=== PATIENT | female | born 1960 | race African-American/Black ===

== ENCOUNTER 2016-09-28 23:50 | Inpatient (IN) | payer MEDICARE, OTHER ==
--- NOTE | ~2016-09-28 | HP ---
History And Physical [facility] [address] [place]. [address] NAME: ORAL ADAN : 60 STATUS : ADM Axel PAT#: [id number] AGE: 56 ADM/REG DATE : 09/29/16 MR#: [id number] REPORT SERV DATE: 09/29/16 DICTATED BY: DATE: REPORT STATUS : Draft TRANSCRIBED BY: MODL DATE: 09/29/16 DATE OF ADMISSION: 09/29/2016 CHIEF COMPLAINT: Knee pain. Inability to ambulate. She also had multiple other complaints of dizziness, jerking. HISTORY OF PRESENT ILLNESS: Ms. Adan is a 56-year-old black female, dialyzes Tuesday, Tuesday, and Tuesday at [facility], who was at [facility] yesterday. I am unsure of whether she got dialysis there or not. She has some pulmonary edema, was sent home from the ER, presented over to [facility] with complaints of right knee pain and inability to ambulate. She denied any fevers, chills, and states that this has been ongoing for approximately two weeks and complained of swelling, tenderness and given this, we admitted her for further evaluation and apparently by her labs, she did not receive dialysis at [facility]. BUN was 93 with creatinine of 14 and potassium of 6.4, and given all this, she has been admitted for further evaluation of this knee pain and inability to ambulate. PAST MEDICAL HISTORY: End-stage renal disease, dialyzes at [facility] on Tuesday, Tuesday, and Tuesday; COPD with oxygen dependence; hypertension; diabetes; chronic pain; left eye blindness; irritable bowel syndrome; parathyroidectomy; neuropathy; seizures; gastroparesis; retinopathy; right toe amputation; H. pylori; and lumbar diskitis last summer. FAMILY MEDICAL HISTORY: No end-stage renal disease. SOCIAL HISTORY: Lives alone. No tobacco or alcohol use. ALLERGIES: SULFA, BENAZEPRIL, PPIS, OXYCODONE, DARVOCET, ADHESIVE TAPE, AND TORADOL. MEDICATIONS AT HOME: Amlodipine; atenolol; calcium; furosemide; Neurontin; hydrocodone; insulin; Lantus; Keppra; and eyedrops. She does seem to tolerate Protonix although she has an allergy to multiple other PPIs. Crestor and Renvela. REVIEW OF SYSTEMS: 12-point review of systems was obtained and negative with the exception of that in HPI. PHYSICAL EXAMINATION: VITAL SIGNS: Temperature 97.5, blood pressure is 159/63, pulse 78, respiratory rate 16, and O2 saturation is 98%. GENERAL: This is a chronically ill-appearing black female. She is awake, alert, oriented, sitting up, eating, no acute distress. Answers questions appropriately. HEENT: Normocephalic, atraumatic. Conjunctivae clear. Sclerae anicteric. Pupils are equal and round. Oral mucosa is moist. NECK: Supple. Carotids are brisk. Neck veins flat. No lymphadenopathy. LUNGS: Respirations are even and unlabored. Breath sounds clear to auscultation. HEART: Rate is regular. No murmur, rub, or gallop. ABDOMEN: Soft and nontender. Bowel sounds active. No masses. No hepatosplenomegaly. No bruits. No CVA tenderness. History And Physical [address] [address] NAME: ORAL ADAN : 60 STATUS : ADM Axel PAT#: [id number] AGE: 56 ADM/REG DATE : 09/29/16 MR#: [id number] REPORT SERV DATE: 09/29/16 DICTATED BY: DATE: REPORT STATUS : Draft TRANSCRIBED BY: MODZachery DATE: 09/29/16 BACK: Within normal limits. EXTREMITIES: No lower extremity edema to her right knee, tender, warmth. I do not appreciate any great amount of redness and no unusual rashes or skin lesions. NEUROLOGIC: No focal deficits. Mood and affect pleasant and appropriate. PERTINENT LABS AND X-RAYS: Chest x-ray was negative. WBC is 5.3, H and H 11 AND 33, and platelets 198,000. Sodium 135, potassium 6.4, chloride 97, CO2 of 22, BUN of 93, creatinine of 14, calcium of 7.2, and albumin of 3.6. LFTs are unremarkable. IMPRESSION: 1. Right knee pain and inability to walk. 2. End-stage renal disease. 3. Noncompliance with dialysis. 4. Hyperkalemia. 5. History of lumbar spine diskitis. 6. Chronic obstructive pulmonary disease, chronically O2 dependent. 7. Diabetes. 8. Hypertension. 9. Chronic pain. PLAN: Admit. Ask Ortho to see and aspirate knee if there is any fluid there to do so. Question if this is gout versus septic joint and in the setting of no fever and no white blood cell count. We will hold off on any antibiotics pending possible aspiration and dialysis today and further orders and recommendations pending clinical course. STEPHEN/MODL ANTWON Cole / [id number] CC: MD LUIZ Hinojosa
--- NOTE | ~2016-09-28 | CN ---
Consultation Report [facility] [address] [place]. [address] NAME: ORAL ADAN : 60 STATUS : ADM Axel PAT#: [id number] AGE: 56 ADM/REG DATE : 09/29/16 MR#: [id number] REPORT SERV DATE: 09/29/16 DICTATED BY: ERNIE NOLAND III DATE: 09/29/16 REPORT STATUS : Draft TRANSCRIBED BY: MODL DATE: 09/29/16 CONSULTATION DATE OF CONSULTATION: 09/29/2016 DEPARTMENT OF [employer]URAL [employer] OFFICER: Ernie Noland M.D. CHIEF COMPLAINT: Right knee pain. HISTORY: The patient is a 56-year-old black female who is admitted to the hospital service for hypokalemia and increased calcium level. She is on renal dialysis, but evidently has not been very compliant. She is now complaining of some right knee pain for the past couple of days with no history of injury or trauma. Orthopedic consultation is obtained for evaluation of her right knee pain and rule out possible septic knee. Her white count is normal. She has been afebrile. ORTHOPEDIC EXAMINATION: Reveals comfortable passive range of motion 0 to 130. No effusion. No erythema. No warmth. Some tenderness to the patellofemoral joint. 1+ varus and valgus stress. Negative Thompson's. Negative pivot shift. Negative posterior drawer. No meniscal signs. DIAGNOSTIC DATA: X-rays none available for review. PLAN: This is not a septic knee. She does not need an aspiration. In fact, there is nothing to aspirate at this time. I think the most likely cause of her knee pain is patellofemoral pain. She may respond to a cortisone shot or some range of motion. Ice and Toradol. I appreciate this consultation. TB/ÁNGELL Ernie Noland III, M.D. / [id number] CC: MD JADA Hinojosa ANGELA C
[2016-09-28 23:14] LABS: BASOPHILS 0.4 %; BASOPHILS ABSOLUTE 0.02 10/3/uL (0.0-0.16); EOSINOPHILS 5.7 %; IMMATURE GRANULOCYTES 0.2 %; IMMATURE GRANULOCYTES ABSOLUTE 0.01 10/3/uL (0.0-0.11); LYMPHOCYTES 31.9 %; LYMPHOCYTES ABSOLUTE 1.69 10/3/uL (0.67-4.30); MEAN CORPUS HGB CONC 32.4 g/dL (32.0-36.0); MEAN CORPUSCULAR HEMOGLOB 31.6 pg (26.0-34.0); MEAN CORPUSCULAR VOLUME 97.4 fL (80-100); MEAN PLATELET VOLUME 12.3 fL (9.2-13.0); MONOCYTES 6.8 %; MONOCYTES ABSOLUTE 0.36 10/3/uL (0.21-1.20); NEUTROPHILS ABSOLUTE 2.91 10/3/uL (2.02-8.40); PLATELET COUNT 198 10/3/uL (150-400); RBC DISTRIBUTION WIDTH 16.4 % (12.0-16.0); RED CELL COUNT 3.48 10/6/uL (4.0-5.6); WHITE BLOOD CELLS 5.3 10/3/uL (4.5-10.5)
[2016-09-28 23:16] LABS: ER CBC TAT 0 Hrs 04 MinsNP; HEMATOCRIT 33.9 % (36.0-48.0); MANUAL DIFF NO %
[~2016-09-28 23:50] MED LIST: *UNABLE1; *UNABLE3; 8 HOUR650 MG PO; ACCUNE1 INH; ACCUNEB INH; ACET500CAP PO; ACIDOPHILUS PO; ADVAIR100 INH; ADVAIR250 INH; ALBUTEROL; ALLEGRA PO; ANALPRAM-HC1 CRE RE; APRES10B PO; APRES25 PO; APRES50 PO; ARANESP40 IV; ASA5GR PO; ASAB PO; ASMANEX INH; ASMANEX100 INH; ATARAX50B PO; ATEN100 PO; ATEN50 PO; AUG500 PO; AUG875 PO; BEN25 PO; BENADRYL 50 MG50 MG PO; BENADRYL PO; BENTYL10 PO; CALTRA600D PO; CALTRAT600 PO; CALTRATE + D PO; CARDCD240 PO; CAT1 PO; CELEXA PO; CELEXA10 PO; CELEXA20 PO; CENTRUM PO; CENTRUM TAB1 TAB PO; CIP5 PO; CRESTOR PO; CRESTOR10 PO; CRESTOR20 MG PO; CRESTOR5 MG PO; D.O.S.100 MG PO; DEPAKOT500 PO; DEPAKOTEER PO; DIL1INJ IM; DIL2TAB PO; DILAUDID PO; DILTIAZEM HCL PO; DIOV160 PO; DSS PO; DULERA 100 MCG/13 GM INH; EPOGEN; FERRLECIT IV; FLEX PO; FLEXERIL PO; FLONASE NAS; GABAPENTIN PO; GARAOINT15 TOP; GENTAK0.3 % OPH; HALF81 PO; HEPARIN INJ5000 U/ML SC; HYDRALAZINE PO; HYDROCODONE PO; HYDROXYZINE PO; IMOD PO; IMODIUM ADV1 CHW PO; INHALER PO; INSNOV7030 SC; INSNOVR SC; IODOSORB TOP; IRON325 MG PO; KAYEXALATE PO; KAYEXUD PO; KEPPRA1000 MG PO; KEPPRA500 PO; KEPPRA750 MG PO; L40 PO; L80 PO; LANTUS; LANTUS SC; LANTUSCART SC; LASIX; LASIX PO; LEVAQ250 PO; LEVAQUIN5T PO; LEVEMIR SC; LIPITOR20 PO; LOM PO; LOP100 PO; LOP25 PO; LORT7 PO; LORTAB10 PO; LOTE40 PO; Lactobacillus PO; METAMUCIL CAN7 OZ PO; MIGRANE MED PO; MIRALAXPKT PO; NAPROXEN PO; NASONEX NAS; NEORAL; NEORAL100 MG/ML OR; NEPHRO PO; NEUR100 PO; NITROQUICK0.4 MG SL; NITROSTAT0.4 MG SL; NORCO PO; NORCO1 TA1 PO; NORCO1 TAB PO; NORV10 PO; NORV5 PO; NORVASC PO; NOVOLIN; NOVOLOG SC; NOVOPEN SC; NXL9 PO; OPANA ER40 MG PO; OTC IRON PO; PARAFON FORT PO; PEP20 PO; PHENERGAN PO; PHOSLO PO; PR25 PO; PRILO PO; PRIN10 PO; PRIN20 PO; PRO STAT; PROAIR HFA INH; PROTONIX PO; PROVENTIL INH; PROVENTSOL INH; PROVHFA INH; REG5 PO; REGLAN 10 MG OR; RELPAX PO; RELPAX40 MG PO; RENA-VITE PO; RENAGEL800 PO; RENAL CAPS PO; RENAL SFTGLS1 MG OR; RENAL SFTGLS1 MG PO; RENATAB1 OR; RENVELA800 MG PO; ROCALTROL0.5 MCG OR; ROCALTROL0.5 MCG PO; SENSIPAR30 M1 OR; SENSIPAR30 MG OR; SEVE800T PO; SILVASORB TOP; STOOL SOFTEN100 MG PO; STOOL SOFTENER OTC PO; T PO; TESSALON PERLE; TUMSROLL PO; TYLENOL 8 HR650 MG PO; TYLENOL PO; VANCO1P; VANCO500 IV; VANCOMYCIN IV; VENTOLIN HFA INH; VIMPAT; VIMPAT50 MG PO; VIST50 PO; VITAPAK PO; XYZAL5 MG PO; ZANTAC150 MG PO; ZESTRIL40 MG PO; ZOFRAN ODT4 MG PO; ZOFRAN8 PO; ZYRTEC ALLGY10 MG PO; [UNRECOGNIZED DRUG - CODE] OPH; [UNRECOGNIZED DRUG - OTHER] INH; [UNRECOGNIZED DRUG - OTHER] INH; [UNRECOGNIZED DRUG - OTHER] OR; [UNRECOGNIZED DRUG - OTHER] PO
[2016-09-28 23:57] LABS: A/G RATIO 0.7 (0.7-1.9); ALBUMIN 3.6 G/DL (3.5-5.0); CALCIUM, SERUM 7.2 MG/DL (8.5-10.4); CHLORIDE, SERUM 97 MMOL/L (96-112); GLOBULIN 5.1 G/DL (2.5-4.1); SGOT(AST) 12 U/L (5-40); SGPT(ALT) 12 U/L (5-65); SODIUM, SERUM 135 MMOL/L (135-148); TOTAL BILIRUBIN 0.4 MG/DL (0-1.2); TOTAL PROTEIN 8.7 G/DL (6.0-8.5)
[2016-09-29] LABS: ALKALINE PHOSPHATASE 124 U/L (45-117); BUN (BLOOD UREA NITROGEN) 93 MG/DL (6-23); CO2 (CARBON DIOXIDE) 22 MMOL/L (24-34); GFR AFRICAN AMERICAN 3 ML/MIN (>=60); GFR NON AFRICAN AMERICAN 3 ML/MIN (>=60); GLUCOSE, SERUM 237 MG/DL (60-99); POTASSIUM, SERUM 6.4 MMOL/L (3.5-5.3)
[2016-09-29] MEDS ORDERED: KEPPRA1000 MG PO (03:22)
[2016-09-29] MEDS ORDERED: KEPPRA500 PO (03:22)
[2016-09-29] MEDS ORDERED: SEVE800T PO (03:23)
[2016-09-29] MEDS ORDERED: NOVOPEN SC (03:23)
[2016-09-29] MEDS ORDERED: PHOSLO PO (03:24)
[2016-09-29] MEDS ORDERED: NORCO1 TA1 PO (03:25)
[2016-09-29] MEDS ORDERED: NORV10 PO (03:26)
[2016-09-29] MEDS ORDERED: L80 PO (03:26)
[2016-09-29] MEDS ORDERED: ATEN50 PO (03:26)
[2016-09-29] MEDS ORDERED: LANTUSCART SC ×2 (03:26→03:27)
[2016-09-29] MEDS ORDERED: PATADAY OPH (03:27)
[2016-09-29] MEDS ORDERED: PROTONIX PO (03:28)
[2016-09-29] MEDS ORDERED: NEUR300 PO (03:28)
[2016-09-29] MEDS ORDERED: NORCO1 TA2 PO (03:28)
[2016-09-29] MEDS ORDERED: CRESTOR20 MG PO (03:29)
[2016-09-30 05:38] LABS: BASOPHILS 0.7 %; BASOPHILS ABSOLUTE 0.03 10/3/uL (0.0-0.16); EOSINOPHILS 5.6 %; EOSINOPHILS ABSOLUTE 0.25 10/3/uL (0.0-0.53); HEMATOCRIT 31.5 % (36.0-48.0); HEMOGLOBIN 10.2 g/dL (12.0-16.0); LYMPHOCYTES 41.1 %; LYMPHOCYTES ABSOLUTE 1.84 10/3/uL (0.67-4.30); MEAN CORPUS HGB CONC 32.4 g/dL (32.0-36.0); MEAN CORPUSCULAR HEMOGLOB 31.8 pg (26.0-34.0); MEAN CORPUSCULAR VOLUME 98.1 fL (80-100); MEAN PLATELET VOLUME 12.1 fL (9.2-13.0); MONOCYTES 6.9 %; MONOCYTES ABSOLUTE 0.31 10/3/uL (0.21-1.20); NEUTROPHILS 45.7 %; NEUTROPHILS ABSOLUTE 2.05 10/3/uL (2.02-8.40); PLATELET COUNT 186 10/3/uL (150-400); RBC DISTRIBUTION WIDTH 15.8 % (12.0-16.0); RED CELL COUNT 3.21 10/6/uL (4.0-5.6); WHITE BLOOD CELLS 4.5 10/3/uL (4.5-10.5)
[2016-09-30 05:42] LABS: MANUAL DIFF NO %
[2016-09-30 06:55] LABS: CALCIUM, SERUM 7.1 MG/DL (8.5-10.4); CHLORIDE, SERUM 98 MMOL/L (96-112); CO2 (CARBON DIOXIDE) 25 MMOL/L (24-34); GFR AFRICAN AMERICAN 4 ML/MIN (>=60); GFR NON AFRICAN AMERICAN 4 ML/MIN (>=60); GLUCOSE, SERUM 252 MG/DL (60-99); PHOSPHORUS, SERUM 6.1 MG/DL (2.5-4.5); SODIUM, SERUM 136 MMOL/L (135-148)
[2016-09-30 06:56] LABS: BUN (BLOOD UREA NITROGEN) 59 MG/DL (6-23); POTASSIUM, SERUM 4.8 MMOL/L (3.5-5.3)
[2016-10-01 19:00] LABS: BASOPHILS 0.4 %; BASOPHILS ABSOLUTE 0.02 10/3/uL (0.0-0.16); EOSINOPHILS 3.8 %; HEMATOCRIT 31.7 % (36.0-48.0); HEMOGLOBIN 10.2 g/dL (12.0-16.0); IMMATURE GRANULOCYTES 0.2 %; IMMATURE GRANULOCYTES ABSOLUTE 0.01 10/3/uL (0.0-0.11); LYMPHOCYTES 34.2 %; LYMPHOCYTES ABSOLUTE 1.82 10/3/uL (0.67-4.30); MEAN CORPUS HGB CONC 32.2 g/dL (32.0-36.0); MEAN CORPUSCULAR HEMOGLOB 31.1 pg (26.0-34.0); MEAN CORPUSCULAR VOLUME 96.6 fL (80-100); MEAN PLATELET VOLUME 11.6 fL (9.2-13.0); MONOCYTES ABSOLUTE 0.32 10/3/uL (0.21-1.20); NEUTROPHILS 55.4 %; NEUTROPHILS ABSOLUTE 2.95 10/3/uL (2.02-8.40); PLATELET COUNT 190 10/3/uL (150-400); RBC DISTRIBUTION WIDTH 15.7 % (12.0-16.0); RED CELL COUNT 3.28 10/6/uL (4.0-5.6); WHITE BLOOD CELLS 5.3 10/3/uL (4.5-10.5)
[2016-10-01 19:04] LABS: MANUAL DIFF NO %
[2016-10-01 19:22] LABS: ALBUMIN 3.3 G/DL (3.5-5.0); CHLORIDE, SERUM 96 MMOL/L (96-112); CO2 (CARBON DIOXIDE) 25 MMOL/L (24-34); GLUCOSE, SERUM 214 MG/DL (60-99); PHOSPHORUS, SERUM 6.5 MG/DL (2.5-4.5); SODIUM, SERUM 136 MMOL/L (135-148)
[2016-10-01 19:23] LABS: BUN (BLOOD UREA NITROGEN) 81 MG/DL (6-23); CALCIUM, SERUM 6.9 MG/DL (8.5-10.4); GFR AFRICAN AMERICAN 3 ML/MIN (>=60); GFR NON AFRICAN AMERICAN 3 ML/MIN (>=60)
[2016-10-02 08:13] LABS: BASOPHILS 0.5 %; BASOPHILS ABSOLUTE 0.03 10/3/uL (0.0-0.16); EOSINOPHILS 4.5 %; EOSINOPHILS ABSOLUTE 0.26 10/3/uL (0.0-0.53); HEMOGLOBIN 9.3 g/dL (12.0-16.0); IMMATURE GRANULOCYTES 0.2 %; IMMATURE GRANULOCYTES ABSOLUTE 0.01 10/3/uL (0.0-0.11); LYMPHOCYTES 39.2 %; LYMPHOCYTES ABSOLUTE 2.24 10/3/uL (0.67-4.30); MEAN CORPUS HGB CONC 32.1 g/dL (32.0-36.0); MEAN CORPUSCULAR VOLUME 96.7 fL (80-100); MEAN PLATELET VOLUME 11.5 fL (9.2-13.0); MONOCYTES 7.2 %; MONOCYTES ABSOLUTE 0.41 10/3/uL (0.21-1.20); NEUTROPHILS 48.4 %; NEUTROPHILS ABSOLUTE 2.77 10/3/uL (2.02-8.40); PLATELET COUNT 161 10/3/uL (150-400); RBC DISTRIBUTION WIDTH 15.4 % (12.0-16.0); WHITE BLOOD CELLS 5.7 10/3/uL (4.5-10.5)
[2016-10-02 08:14] LABS: MANUAL DIFF NO %
[2016-10-02 08:39] LABS: CHLORIDE, SERUM 97 MMOL/L (96-112); CO2 (CARBON DIOXIDE) 24 MMOL/L (24-34); GLUCOSE, SERUM 182 MG/DL (60-99); PHOSPHORUS, SERUM 6.5 MG/DL (2.5-4.5); POTASSIUM, SERUM 5.7 MMOL/L (3.5-5.3); SODIUM, SERUM 138 MMOL/L (135-148)
[2016-10-02 08:40] LABS: BUN (BLOOD UREA NITROGEN) 95 MG/DL (6-23); CALCIUM, SERUM 6.5 MG/DL (8.5-10.4); GFR AFRICAN AMERICAN 3 ML/MIN (>=60); GFR NON AFRICAN AMERICAN 3 ML/MIN (>=60)
[2017-02-23] MEDS ORDERED: COZ25 PO (20:19)
[2017-02-23] MEDS ORDERED: ASAB PO (20:20)
[2017-02-26] MEDS ORDERED: L80 PO (14:47)
[2017-03-10] MEDS ORDERED: APTIOM 200 MG PO (12:40)
[2017-03-10] MEDS ORDERED: COZ25 PO (12:56)
[2017-03-10] MEDS ORDERED: THERGRANM PO (12:58)
[2017-03-10] MEDS ORDERED: NORCO1 TA2 PO (13:07)
[2017-03-10] MEDS ORDERED: LANTUS SC (13:15)
[2017-03-10] MEDS ORDERED: ADVAIR100 INH (13:19)
[2017-03-10] MEDS ORDERED: PATADAY (13:20)
[2017-03-10] MEDS ORDERED: KEPPRA750 MG PO (13:25)
== END 2016-10-02 15:22 | DRG 640 ==
LOC: ER 23:50 → 2SO 09-29 22:17
PROVIDERS: Emergency Medicine; Nurse Practitioner
PROC: 5A1D60Z (ICD-10-PCS; principal; 2016-09-29)
DX: E87.5 Hyperkalemia (principal); N18.6 End stage renal disease; E11.22 Type 2 diabetes mellitus with diabetic chronic kidney disease; Z99.81 Dependence on supplemental oxygen; K31.84 Gastroparesis; E11.40 Type 2 diabetes mellitus with diabetic neuropathy, unspecified; I12.9 Hypertensive chronic kidney disease with stage 1 through stage 4 chronic kidney disease, or unspecified chronic kidney disease; J44.9 Chronic obstructive pulmonary disease, unspecified; H54.42 Blindness, left eye, normal vision right eye; K58.9 Irritable bowel syndrome, unspecified; E11.43 Type 2 diabetes mellitus with diabetic autonomic (poly)neuropathy; E11.319 Type 2 diabetes mellitus with unspecified diabetic retinopathy without macular edema; Z99.2 Dependence on renal dialysis; Z79.4 Long term (current) use of insulin; Z89.421 Acquired absence of other right toe(s); Z88.2 Allergy status to sulfonamides; Z88.5 Allergy status to narcotic agent; Z88.8 Allergy status to other drugs, medicaments and biological substances; Z91.15 Patient's noncompliance with renal dialysis
CPT/HCPCS: 71010; 73560-RT; 80053; 80069; 82330; 82962; 85025; 93005; 94640; 97110-GP; 97116-GP; 97162-GP; 97165-GO; 99285; A9270-GY; G0257; G8978-CK-GP; G8979-CJ-GP; G8987-CJ-GO; G8988-CI-GO; J0610; J2405

== ENCOUNTER 2016-12-28 20:54 | Inpatient (IN) | payer MEDICARE, OTHER ==
--- NOTE | ~2016-12-28 | HP ---
History And Physical [facility] [address] [place]. [address] NAME: ORAL ADAN : 60 STATUS : ADM IN [facility]#: [id number] AGE: 56 ADM/REG DATE : 12/28/16 MR#: [id number] REPORT SERV DATE: 12/29/16 DICTATED BY: NITA SWANN DATE: 12/29/16 REPORT STATUS : Draft TRANSCRIBED BY: MODL DATE: 12/29/16 DATE OF ADMISSION: 12/28/2016 INDICATION FOR HOSPITALIZATION: Volume overload, hyperkalemia, irritable bowel syndrome with diarrhea. HISTORY OF PRESENT ILLNESS: Ms. Adan is a 56-year-old female, who dialyzes Tuesday, Tuesday, Tuesday at [facility] by AVF. She missed treatment on 12/27/2016 due to diarrhea. She states that she has been seen Dr. Ruffin and her abdominal pain/cramping and diarrhea has worsened. She felt she was under better management with her prior GI physician. She requested that her GI doctor by name. She has had some left elbow pain and is scheduled for outpatient evaluation. Otherwise, she states that she was having no problems. PAST MEDICAL HISTORY: End-stage renal disease, dialyzing Tuesday, Tuesday, Tuesday at [facility]; history of noncompliance with dialysis; COPD; asthma; hypertension; superior vena cava syndrome; status post angioplasty of right internal jugular and right innominate veins; improving facial swelling; insulin-dependent diabetes mellitus; diabetic neuropathy; diabetic gastroparesis; diabetic retinopathy with blindness in left eye, requiring enucleation prosthesis; seizure disorder; chronic pain; irritable bowel syndrome; peripheral arterial disease with remote right great toe amputation; atherosclerotic cardiovascular disease; glaucoma; history of QT prolongation; peptic ulcer disease; and remote parathyroidectomy. ALLERGIES: BACTRIM, BENAZEPRIL, PERCOCET, DARVOCET, PRILOSEC, NEXIUM, ADHESIVE TAPE, TORADOL, LANSOPRAZOLE, TRAMADOL, NEXIUM. HOME MEDICATIONS: Albuterol, amlodipine, atenolol, calcium acetate, Celexa, Welchol, Lasix, Neurontin, Keppra, Pataday ophthalmic solution, Protonix, Crestor, Renvela. SOCIAL HISTORY: Smokes two cigarettes per day with prior use of tobacco products. No alcohol products or illicit drugs. FAMILY HISTORY: Positive for hypertension and diabetes. One brother with end-stage renal disease. REVIEW OF SYSTEMS: HEENT: No change in visual acuity with blindness of left eye. No epistaxis, otic infection, or pharyngitis. PULMONARY: Intermittent shortness of breath. No cough or hemoptysis. Cardiac: Has intermittent chest pressure and intermittent lower extremity edema. GI: No nausea, vomiting, melena, but has had abdominal cramping and diarrhea. : No gross hematuria. MUSCULOSKELETAL: Pain in lower extremities. INTEGUMENT: No rash. No skin lesions. NEUROLOGIC: No lateralizing weakness. No recent seizure event continues with peripheral History And Physical [address] [place]. [address] NAME: ORAL ADAN : 60 STATUS : ADM IN [facility]#: [id number] AGE: 56 ADM/REG DATE : 12/28/16 MR#: [id number] REPORT SERV DATE: 12/29/16 DICTATED BY: NITA SWANN DATE: 12/29/16 REPORT STATUS : Draft TRANSCRIBED BY: JOHN DATE: 12/29/16 neuropathy. Remainder of 12-point review of systems is negative. PHYSICAL EXAMINATION: GENERAL: Chronically debilitated female, alert, cooperative. VITAL SIGNS: Blood pressure 177/82, temperature 98.6, respiratory rate 18, pulse 63. HEENT: Eyes: No scleral icterus. Right pupil reactive. Nares patent. No lesions. Throat: No injection. Mucous membranes moist. NECK: No thyromegaly, masses, bruits. CHEST/LUNGS: Late crackles laterally. No wheezing. No dullness. CARDIAC: Regular rate and rhythm. Questionable 1/6 systolic ejection murmur. No gallop or rub. ABDOMEN: Supple. No guarding. Bowel sounds present. No hepatosplenomegaly. BREASTS: Exam not performed. PELVIC: Exam not performed. RECTAL: Exam not performed. EXTREMITIES: No edema. No calf tenderness. Right great toe amputation noted. MUSCULOSKELETAL: No deformity, except right toe amputation. No joint effusions. There is some tenderness in the right elbow. NEUROLOGIC: Cranial nerves intact. No lateralizing weakness. IMPRESSION: 1. Hyperkalemia, volume overload due to noncompliance with dialysis. 2. Irritable bowel syndrome with abdominal cramping and diarrhea. Precipitating noncompliance with dialysis. 3. End-stage renal disease, dialyzing Tuesday, Tuesday, Tuesday at [facility] by AV fistula. 4. Type 2 diabetes mellitus. 5. Hypertension. 6. Diabetic neuropathy. 7. Chronic obstructive pulmonary disease with asthma, on home oxygen. 8. Rheumatoid arthritis. 9. Gastroesophageal reflux disease. PLAN: 1. GI consult. 2. Urgent dialysis. 3. Resume home medications. CG/JOHN Nita Swann M.D. History And Physical [address] [address] NAME: ORAL ADAN : 60 STATUS : ADM IN [facility]#: [id number] AGE: 56 ADM/REG DATE : 12/28/16 MR#: [id number] REPORT SERV DATE: 12/29/16 DICTATED BY: NITA SWANN DATE: 12/29/16 REPORT STATUS : Draft TRANSCRIBED BY: JOHN DATE: 12/29/16 / [id number] CC: Rj Long ANGELA C
--- NOTE | ~2016-12-28 | DS ---
Discharge Summary [facility] [address] [place]. [address] NAME: ORAL ADAN : 60 STATUS : DIS IN PAT#: [id number] AGE: 56 ADM/REG DATE : 12/28/16 MR#: [id number] REPORT SERV DATE: 01/01/17 DICTATED BY: NITA SWANN DATE: 12/31/16 REPORT STATUS : Draft TRANSCRIBED BY: MODL DATE: 12/31/16 ADMISSION DATE: 12/28/2016 DISCHARGE DATE: 12/31/2016 INDICATION FOR HOSPITALIZATION: Volume overload, hyperkalemia, irritable bowel syndrome with diarrhea. DISCHARGE DIAGNOSES: 1. Hyperkalemia and volume overload due to noncompliance with dialysis. 2. Irritable bowel syndrome with abdominal cramping and diarrhea, precipitating, noncompliance with dialysis. 3. End-stage renal disease, dialyzing Tuesday, Tuesday, Tuesday at [facility] by arteriovenous fistula. 4. Type 2 diabetes mellitus. 5. Hypertension. 6. Diabetic neuropathy. 7. Chronic obstructive pulmonary disease with asthma on home O2. 8. Rheumatoid arthritis. 9. Gastroesophageal reflux disease. 10.History of superior vena cava syndrome, status post angioplasty of right internal jugular and right innominate veins with improving facial swelling. 11.Diabetic gastroparesis. 12.Diabetic retinopathy with blindness, left eye. 13.Seizure disorder. 14.Chronic pain. 15.Peripheral arterial disease with remote right great toe amputation. 16.Atherosclerotic cardiovascular disease. 17.Glaucoma. 18.History of QT prolongation. 19.History of peptic ulcer disease. 20.Remote parathyroidectomy. HOSPITAL COURSE: Ms. Adan is a 56-year-old female who is dialyzed Tuesday, Tuesday, Tuesday at [facility] by left AVF. She missed treatment on 12/27/2016 due to diarrhea and abdominal cramping. She states that her GI symptoms have worsened since she was last seen by GI and she wanted to transition to a different wine and spirits clerk and requested Dr. Singleton by name. She otherwise had some left elbow pain which is scheduled for outpatient evaluation. The patient was seen by GI and felt that she did not need any endoscopic procedure. Her diarrhea was felt to be acute on chronic and medications were adjusted. Bentyl 20 mg p.o. a.c. and Florastor one b.i.d. was initiated for diarrhea and Zofran was initiated for nausea. The GI symptoms quickly abated. She required no further intervention. She was dialyzed emergently for volume overload and hyperkalemia. She was noted to have a potassium of 4.5 on 12/30/2016 and was dialyzed on 12/31/2016. She felt stable for release Discharge Summary [address] [place]. [address] NAME: ORAL ADAN : 60 STATUS : DIS IN PAT#: [id number] AGE: 56 ADM/REG DATE : 12/28/16 MR#: [id number] REPORT SERV DATE: 01/01/17 DICTATED BY: NITA SWANN DATE: 12/31/16 REPORT STATUS : Draft TRANSCRIBED BY: JOHN DATE: 12/31/16 and wanted to go home. DISCHARGE MEDICATIONS: Amlodipine 10 mg p.o. twice daily; Tenormin 50 mg daily; PhosLo 667 mg three p.o. with meals; calcium acetate/PhosLo 667 mg two p.o. with snacks; Celexa 20 mg daily; Welchol 625 mg daily; Lasix 80 mg p.o. Tuesday, Tuesday, Tuesday, ; Neurontin 100 mg q.a.m.; Keppra 1000 mg q.a.m. and 1500 mg at bedtime; Lantus 30 units subcutaneous every morning and 20 units subcutaneous with lunch and supper; NovoLog FlexPen sliding scale per home regimen; Pataday ophthalmic drops, one drop both eyes daily; Protonix 40 mg p.o. daily; Zofran 4 mg p.o. twice daily; Renvela 1600 mg with meals; albuterol inhaler two puffs every 4 hours as needed; Florastor one capsule twice daily; Crestor 20 mg p.o. daily; dicyclomine 20 mg p.o. a.c. meals; and Lortab 5/325 one p.o. b.i.d. x2 weeks, dispense 28, no refill. FOLLOWUP: Will be on dialysis as scheduled. Follow up with GI as requested. ACTIVITY: Activity will be resumed per home regimen. DIET: 2000-calorie ADA renal diet. DICTATED BY: Rj Long/JOHN Nita Swann M.D. / [id number] CC: Rj Long
--- NOTE | ~2016-12-28 | CN ---
Consultation Report [facility] [address] [place]. [address] NAME: ORAL ADAN : 60 STATUS : ADM IN PAT#: [id number] AGE: 56 ADM/REG DATE : 12/28/16 MR#: [id number] REPORT SERV DATE: 12/29/16 DICTATED BY: MACARIO WHITMORE DATE: 12/29/16 REPORT STATUS : Draft TRANSCRIBED BY: MODL DATE: 12/29/16 CONSULTATION DATE OF CONSULTATION: REASON FOR CONSULTATION: Evaluation and management of diarrhea, irritable bowel syndrome, and abdominal pain. HISTORY OF PRESENT ILLNESS: Ms. Adan is a 56-year-old female patient who has been seen by Dr. Singleton in the past, who presents to [facility] with a chief complaint of abdominal pain and diarrhea, found to have volume overload, as well as hyperkalemia secondary to missed dialysis treatments. The patient tells me that she has had a history of irritable bowel with diarrhea being seen by another GI physician, who at this time of my rounding she could not recall his name. Treated with a "little green pill." She has been having acute onset of right-sided abdominal pain with diarrhea since Tuesday. She states over the last 24 hours, she has had bowel movements every 15 minutes with increasing right-sided abdominal pain. She missed her dialysis treatment on Tuesday secondary to abdominal pain and cramping. She came to the emergency room, was found to have elevated potassium level as well as symptoms of volume overload. She was given Kayexalate. Her potassium level on admission 6.2, presently 5.1. Secondary to her complaints of abdominal pain and diarrhea, GI consultation was requested. The patient gives a history of a recent endoscopy with her other GI physician, told she had a bacteria in her stomach, presumed H pylori, which she was given antibiotics for treatment. At present, she states that her diarrhea did increase after she was given Kayexalate, but even prior to that, she had had increased stooling. She denies any hematochezia or melena. She states that it had a very foul odor. No mucus was observed by the patient. I have discussed with the patient that we will obtain stool studies to rule out C diff as well as any other infectious cause for her diarrhea. If her pain persists, would recommend noncontrasted CT. At this point, we will hold off on any endoscopy at this time. PAST MEDICAL HISTORY: Positive for pancreatitis; colon polyps; gastritis; H pylori; end- stage renal disease, requiring dialysis treatments; medical noncompliance; COPD; asthma; hypertension; superior vena cava syndrome. She has a history of angioplasty to the right internal jugular, type 2 diabetes, diabetic neuropathy, gastroparesis, diabetic retinopathy with left eye blindness, seizure disorder, chronic pain syndrome, irritable bowel with diarrhea, peripheral arterial disease, right great toe amputation, cardiovascular disease, glaucoma, peptic ulcer disease, parathyroidectomy, left eye enucleation with prosthesis. SOCIAL HISTORY: Positive for tobacco. No alcohol or illicits. FAMILY HISTORY: Noncontributory from a GI standpoint. ALLERGIES: LISTED TO BACTRIM, BENAZEPRIL, PERCOCET, DARVOCET, PRILOSEC, NEXIUM, TRAMADOL, AND TORADOL. Consultation Report [address] [address] NAME: ORAL ADAN : 60 STATUS : ADM IN [facility]#: [id number] AGE: 56 ADM/REG DATE : 12/28/16 MR#: [id number] REPORT SERV DATE: 12/29/16 DICTATED BY: MACARIO WHITMORE DATE: 12/29/16 REPORT STATUS : Draft TRANSCRIBED BY: OJHN DATE: 12/29/16 HOME MEDICATIONS: Ventolin, Norvasc, Tenormin, PhosLo, Celexa, WelChol, Lasix, Neurontin, NovoLog, Lantus, Keppra, Protonix, Crestor, and Renvela. REVIEW OF SYSTEMS: A 10-point review of systems was obtained with pertinent positives being addressed in the history of present illness. PHYSICAL EXAMINATION: VITAL SIGNS: Temperature is 98.2, pulse 60, respirations 15, blood pressure is 154/63. NEURO: Reveals an alert female, resting in bed. GENERAL: She is cooperative. She is in no acute distress. She is awake, alert, oriented x3. HEAD, EARS, EYES, NOSE, AND THROAT: Abnormal left eye. Normocephalic, atraumatic. NECK: No JVD. No palpable nodes. Supple. LUNGS: Decreased throughout with normal respiratory effort exhibited. CARDIOVASCULAR: Regular rate and rhythm. ABDOMEN: Soft, round, and obese. Tenderness to palpation mildly to the right side on deep palpation. She has active bowel sounds in all four quadrants. Unable to assess organomegaly. EXTREMITIES: No edema. Normal distal pulses. SKIN: Warm, dry, and intact. PERTINENT LABORATORY DATA: Sodium 138, potassium 5.1, BUN 36, creatinine is 15.6. White blood cell count is 4.9, hemoglobin 11, hematocrit 33.5. Total bilirubin is 0.6, alkaline phosphatase 100, ALT 11, AST 14. Lipase 218. BNP is 654. ASSESSMENT: 1. Diarrhea, acute on chronic. 2. Obvious history with predominant diarrhea. 3. Abdominal pain, acute on chronic. 4. End-stage renal disease with dialysis dependence. 5. History of type 2 diabetes. 6. History of H. pylori, question treatment compliance. 7. Hyperkalemia with fluid volume overload secondary to dialysis noncompliance. 8. Medical noncompliance. PLAN: 1. Stool studies. 2. We will also check a stool for H. pylori. 3. Stool studies negative, pain persists, question CT scan. 4. We will begin low-dose Bentyl as well as Florastor. We will follow. Consultation Report [address] [place]. [address] NAME: ORAL ADAN : 60 STATUS : ADM IN [facility]#: [id number] AGE: 56 ADM/REG DATE : 12/28/16 MR#: [id number] REPORT SERV DATE: 12/29/16 DICTATED BY: MACARIO WHITMORE DATE: 12/29/16 REPORT STATUS : Draft TRANSCRIBED BY: JOHN DATE: 12/29/16 MENDEZ/JOHN ANTWON Reich / [id number] CC: Rj Long ANGELA C
[~2016-12-28 20:54] MED LIST changes: +NEUR300 PO; +NORCO1 TA2 PO; +PATADAY OPH
[2016-12-28 22:16] LABS: BASOPHILS 0.2 %; BASOPHILS ABSOLUTE 0.01 10/3/uL (0.0-0.16); EOSINOPHILS ABSOLUTE 0.16 10/3/uL (0.0-0.53); ER CBC TAT 0 Hrs 07 Mins; HEMOGLOBIN 11.4 g/dL (12.0-16.0); IMMATURE GRANULOCYTES 0.2 %; IMMATURE GRANULOCYTES ABSOLUTE 0.01 10/3/uL (0.0-0.11); LYMPHOCYTES 24.9 %; LYMPHOCYTES ABSOLUTE 1.34 10/3/uL (0.67-4.30); MEAN CORPUS HGB CONC 32.7 g/dL (32.0-36.0); MEAN CORPUSCULAR HEMOGLOB 31.2 pg (26.0-34.0); MEAN CORPUSCULAR VOLUME 95.6 fL (80-100); MEAN PLATELET VOLUME 11.6 fL (9.2-13.0); MONOCYTES 5.6 %; NEUTROPHILS 66.1 %; NEUTROPHILS ABSOLUTE 3.57 10/3/uL (2.02-8.40); PLATELET COUNT 162 10/3/uL (150-400); RBC DISTRIBUTION WIDTH 15.1 % (12.0-16.0); RED CELL COUNT 3.65 10/6/uL (4.0-5.6); WHITE BLOOD CELLS 5.4 10/3/uL (4.5-10.5)
[2016-12-28 22:17] LABS: HEMATOCRIT 34.9 % (36.0-48.0); MANUAL DIFF NO %
[2016-12-28 22:31] LABS: A/G RATIO 0.8 (0.7-1.9); ALBUMIN 3.6 G/DL (3.5-5.0); ALKALINE PHOSPHATASE 100 U/L (45-117); CHLORIDE, SERUM 100 MMOL/L (96-112); CO2 (CARBON DIOXIDE) 26 MMOL/L (24-34); GLOBULIN 4.4 G/DL (2.5-4.1); SGOT(AST) 14 U/L (5-40); SGPT(ALT) 11 U/L (5-65); SODIUM, SERUM 137 MMOL/L (135-148); TOTAL BILIRUBIN 0.6 MG/DL (0-1.2)
[2016-12-28 22:32] LABS: BUN (BLOOD UREA NITROGEN) 81 MG/DL (6-23); CALCIUM, SERUM 7.2 MG/DL (8.5-10.4); GFR AFRICAN AMERICAN 3 ML/MIN (>=60); GFR NON AFRICAN AMERICAN 2 ML/MIN (>=60); GLUCOSE, SERUM 157 MG/DL (60-99); POTASSIUM, SERUM 6.2 MMOL/L (3.5-5.3)
[2016-12-28] MEDS ORDERED: ATEN50 PO (23:52)
[2016-12-28] MEDS ORDERED: NORV10 PO (23:52)
[2016-12-28] MEDS ORDERED: PHOSLO PO (23:56)
[2016-12-28] MEDS ORDERED: CELEXA20 PO (23:58)
[2016-12-29] MEDS ORDERED: L40 PO (00:01)
[2016-12-29] MEDS ORDERED: WELCHOL 625 MG625 MG PO (00:02)
[2016-12-29] MEDS ORDERED: KEPPRA1000 MG PO (00:02)
[2016-12-29] MEDS ORDERED: PROVHFA INH (00:02)
[2016-12-29] MEDS ORDERED: PATADAY OPH (00:03)
[2016-12-29] MEDS ORDERED: PROTONIX PO (00:04)
[2016-12-29] MEDS ORDERED: NEUR100 PO (00:04)
[2016-12-29] MEDS ORDERED: LANTUSCART SC (00:04)
[2016-12-29] MEDS ORDERED: LANTUS SC (00:04)
[2016-12-29] MEDS ORDERED: CRESTOR20 MG PO (00:05)
[2016-12-29] MEDS ORDERED: NOVOLOG SC (00:05)
[2016-12-29] MEDS ORDERED: SEVE800T PO (00:07)
[2016-12-29 06:06] LABS: CALCIUM, SERUM 7.2 MG/DL (8.5-10.4); CHLORIDE, SERUM 101 MMOL/L (96-112); GFR AFRICAN AMERICAN 3 ML/MIN (>=60); GFR NON AFRICAN AMERICAN 2 ML/MIN (>=60); GLUCOSE, SERUM 143 MG/DL (60-99); POTASSIUM, SERUM 5.1 MMOL/L (3.5-5.3); SODIUM, SERUM 138 MMOL/L (135-148)
[2016-12-29 06:09] LABS: BUN (BLOOD UREA NITROGEN) 86 MG/DL (6-23); CO2 (CARBON DIOXIDE) 21 MMOL/L (24-34)
[2016-12-29 08:33] LABS: BASOPHILS 0.4 %; BASOPHILS ABSOLUTE 0.02 10/3/uL (0.0-0.16); EOSINOPHILS 4.3 %; EOSINOPHILS ABSOLUTE 0.21 10/3/uL (0.0-0.53); HEMATOCRIT 33.5 % (36.0-48.0); IMMATURE GRANULOCYTES 0.2 %; IMMATURE GRANULOCYTES ABSOLUTE 0.01 10/3/uL (0.0-0.11); LYMPHOCYTES 32.1 %; LYMPHOCYTES ABSOLUTE 1.57 10/3/uL (0.67-4.30); MEAN CORPUS HGB CONC 32.8 g/dL (32.0-36.0); MEAN CORPUSCULAR HEMOGLOB 30.8 pg (26.0-34.0); MEAN CORPUSCULAR VOLUME 93.8 fL (80-100); MEAN PLATELET VOLUME 12.3 fL (9.2-13.0); MONOCYTES 7.6 %; MONOCYTES ABSOLUTE 0.37 10/3/uL (0.21-1.20); NEUTROPHILS 55.4 %; NEUTROPHILS ABSOLUTE 2.71 10/3/uL (2.02-8.40); PLATELET COUNT 153 10/3/uL (150-400); RED CELL COUNT 3.57 10/6/uL (4.0-5.6); WHITE BLOOD CELLS 4.9 10/3/uL (4.5-10.5)
[2016-12-29 08:34] LABS: MANUAL DIFF NO %
[2016-12-29 09:37] LABS: ALBUMIN 3.7 G/DL (3.5-5.0)
[2016-12-29 09:40] LABS: PHOSPHORUS, SERUM 8.5 MG/DL (2.5-4.5)
[2016-12-30 07:31] LABS: BASOPHILS 0.7 %; BASOPHILS ABSOLUTE 0.03 10/3/uL (0.0-0.16); EOSINOPHILS ABSOLUTE 0.21 10/3/uL (0.0-0.53); HEMOGLOBIN 11.1 g/dL (12.0-16.0); LYMPHOCYTES ABSOLUTE 1.69 10/3/uL (0.67-4.30); MEAN CORPUS HGB CONC 31.7 g/dL (32.0-36.0); MEAN CORPUSCULAR HEMOGLOB 31.2 pg (26.0-34.0); MEAN PLATELET VOLUME 12.1 fL (9.2-13.0); MONOCYTES 8.3 %; MONOCYTES ABSOLUTE 0.35 10/3/uL (0.21-1.20); NEUTROPHILS ABSOLUTE 1.94 10/3/uL (2.02-8.40); PLATELET COUNT 150 10/3/uL (150-400); RBC DISTRIBUTION WIDTH 15.1 % (12.0-16.0); RED CELL COUNT 3.56 10/6/uL (4.0-5.6); WHITE BLOOD CELLS 4.2 10/3/uL (4.5-10.5)
[2016-12-30 07:35] LABS: MANUAL DIFF NO %; MEAN CORPUSCULAR VOLUME 98.3 fL (80-100)
[2016-12-30 07:52] LABS: ALBUMIN 3.4 G/DL (3.5-5.0); CALCIUM, SERUM 7.4 MG/DL (8.5-10.4); CHLORIDE, SERUM 103 MMOL/L (96-112); POTASSIUM, SERUM 4.5 MMOL/L (3.5-5.3); SODIUM, SERUM 142 MMOL/L (135-148)
[2016-12-30 07:55] LABS: BUN (BLOOD UREA NITROGEN) 52 MG/DL (6-23); CO2 (CARBON DIOXIDE) 27 MMOL/L (24-34); GFR AFRICAN AMERICAN 4 ML/MIN (>=60); GFR NON AFRICAN AMERICAN 3 ML/MIN (>=60); GLUCOSE, SERUM 73 MG/DL (60-99); PHOSPHORUS, SERUM 7.2 MG/DL (2.5-4.5)
[2016-12-31 07:58] LABS: BASOPHILS 0.4 %; BASOPHILS ABSOLUTE 0.02 10/3/uL (0.0-0.16); EOSINOPHILS 4.2 %; HEMATOCRIT 32.7 % (36.0-48.0); HEMOGLOBIN 10.6 g/dL (12.0-16.0); IMMATURE GRANULOCYTES 0.2 %; IMMATURE GRANULOCYTES ABSOLUTE 0.01 10/3/uL (0.0-0.11); LYMPHOCYTES 40.3 %; LYMPHOCYTES ABSOLUTE 1.91 10/3/uL (0.67-4.30); MEAN CORPUS HGB CONC 32.4 g/dL (32.0-36.0); MEAN CORPUSCULAR HEMOGLOB 31.2 pg (26.0-34.0); MEAN CORPUSCULAR VOLUME 96.2 fL (80-100); MEAN PLATELET VOLUME 11.9 fL (9.2-13.0); MONOCYTES 7.8 %; MONOCYTES ABSOLUTE 0.37 10/3/uL (0.21-1.20); NEUTROPHILS 47.1 %; NEUTROPHILS ABSOLUTE 2.23 10/3/uL (2.02-8.40); PLATELET COUNT 127 10/3/uL (150-400); WHITE BLOOD CELLS 4.7 10/3/uL (4.5-10.5)
[2016-12-31 07:59] LABS: MANUAL DIFF NO %
[2016-12-31 08:11] LABS: ALBUMIN 3.2 G/DL (3.5-5.0); CALCIUM, SERUM 7.3 MG/DL (8.5-10.4); CHLORIDE, SERUM 99 MMOL/L (96-112); CO2 (CARBON DIOXIDE) 24 MMOL/L (24-34); POTASSIUM, SERUM 5.2 MMOL/L (3.5-5.3); SODIUM, SERUM 136 MMOL/L (135-148)
[2016-12-31 08:12] LABS: BUN (BLOOD UREA NITROGEN) 72 MG/DL (6-23); GFR AFRICAN AMERICAN 3 ML/MIN (>=60); GFR NON AFRICAN AMERICAN 3 ML/MIN (>=60); GLUCOSE, SERUM 184 MG/DL (60-99)
[2016-12-31] MEDS ORDERED: BENTYL20 PO (14:04)
[2016-12-31] MEDS ORDERED: ZOFRAN4 PO (14:04)
[2016-12-31] MEDS ORDERED: FLORASTOR250 MG PO (14:04)
[2016-12-31] MEDS ORDERED: NORCO1 TA1 PO (14:07)
[2017-02-23] MEDS ORDERED: COZ25 PO (20:19)
[2017-02-23] MEDS ORDERED: ASAB PO (20:20)
[2017-02-26] MEDS ORDERED: L80 PO (14:47)
[2017-03-10] MEDS ORDERED: APTIOM 200 MG PO (12:40)
[2017-03-10] MEDS ORDERED: COZ25 PO (12:56)
[2017-03-10] MEDS ORDERED: THERGRANM PO (12:58)
[2017-03-10] MEDS ORDERED: NORCO1 TA2 PO (13:07)
[2017-03-10] MEDS ORDERED: LANTUS SC (13:15)
[2017-03-10] MEDS ORDERED: ADVAIR100 INH (13:19)
[2017-03-10] MEDS ORDERED: PATADAY (13:20)
[2017-03-10] MEDS ORDERED: KEPPRA750 MG PO (13:25)
== END 2016-12-31 19:00 | disposition home or self-care (01) | DRG 391 ==
LOC: ER 20:54 → 5SO 23:42
PROVIDERS: Internal Medicine Nephrology; Nurse Practitioner Acute Care
PROC: 5A1D60Z (ICD-10-PCS; principal; 2016-12-29)
DX: K58.0 Irritable bowel syndrome with diarrhea (principal); N18.6 End stage renal disease; E11.21 Type 2 diabetes mellitus with diabetic nephropathy; K31.84 Gastroparesis; E87.70 Fluid overload, unspecified; I12.0 Hypertensive chronic kidney disease with stage 5 chronic kidney disease or end stage renal disease; E11.43 Type 2 diabetes mellitus with diabetic autonomic (poly)neuropathy; Z94.0 Kidney transplant status; E87.5 Hyperkalemia; Z91.15 Patient's noncompliance with renal dialysis; E11.22 Type 2 diabetes mellitus with diabetic chronic kidney disease; J44.9 Chronic obstructive pulmonary disease, unspecified; M06.9 Rheumatoid arthritis, unspecified; Z99.81 Dependence on supplemental oxygen; K21.9 Gastro-esophageal reflux disease without esophagitis; E11.319 Type 2 diabetes mellitus with unspecified diabetic retinopathy without macular edema; G40.909 Epilepsy, unspecified, not intractable, without status epilepticus; G89.29 Other chronic pain; F17.210 Nicotine dependence, cigarettes, uncomplicated; I25.10 Atherosclerotic heart disease of native coronary artery without angina pectoris; H40.9 Unspecified glaucoma; Z88.2 Allergy status to sulfonamides; Z88.5 Allergy status to narcotic agent; Z87.11 Personal history of peptic ulcer disease; Z88.8 Allergy status to other drugs, medicaments and biological substances; Z89.411 Acquired absence of right great toe; Z79.899 Other long term (current) drug therapy; Z79.4 Long term (current) use of insulin; Z91.14 Patient's other noncompliance with medication regimen; E78.5 Hyperlipidemia, unspecified; Z90.710 Acquired absence of both cervix and uterus; Z90.49 Acquired absence of other specified parts of digestive tract
CPT/HCPCS: 71010; 80053; 80069; 80177; 82962; 83690; 83735; 83880; 85025; 99285; A9270-GY; G0257; P9047